=== PATIENT | female | born 1955 | race Caucasian/White ===

== ENCOUNTER 2016-11-04 07:43 | Emergency (ER) | payer OTHER, BC ==
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
== END 2016-11-04 10:00 | disposition home or self-care (01) ==
LOC: ER 07:43
DX: S46.911A Strain of unspecified muscle, fascia and tendon at shoulder and upper arm level, right arm, initial encounter (principal); S20.219A Contusion of unspecified front wall of thorax, initial encounter; I10 Essential (primary) hypertension; V49.40XA Driver injured in collision with unspecified motor vehicles in traffic accident, initial encounter

== ENCOUNTER 2016-12-27 09:12 | Emergency (ER) | payer BC ==
--- NOTE | 2016-12-30 16:46 | ER ---
ADMIT: 12/27/2016 RM/LOC: ER [facility] MR#: [id number] [address] [facility] [address] [place] [id number] IVAN ABRAHAM [address] [place] [address] Emergency Room Report SEX: F AGE: 61 : 1955 DATE: 12/27/2016 ADDENDUM: A 61-year-old white female coming in after having a cyst removed off her lower lumbar spine area. Evidently, I did it on or Tuesday. Pain is not being controlled. I did do a CT scan. There is only postop changes noted. She has no fever. The wound looks good. I put her on Percocet 5/325, 1 to 2 p.o. q.6 p.r.n. pain instead of the hydrocodone. Follow up with Dr. Galo as scheduled. CONDITION ON DISCHARGE: Good. Kye Crain MD/ soy JOB #: [id number] CC: Kye Crain MD, Attending Physician Scarlet Del Rosario MD, Family Physician
== END 2016-12-27 11:10 | disposition home or self-care (01) ==
LOC: ER 09:12
DX: G89.18 Other acute postprocedural pain (principal); M54.5 Low back pain; I10 Essential (primary) hypertension; Z90.49 Acquired absence of other specified parts of digestive tract; Z90.710 Acquired absence of both cervix and uterus; Z98.890 Other specified postprocedural states; Z79.899 Other long term (current) drug therapy